=== PATIENT | male | born 1995 | race Hispanic/Latino ===

== ENCOUNTER → 2025-02-09 14:18 | Outpatient (REF) | payer OTHER, SELFPAY ==
[2025-02-09 15:04] LABS: Hematocrit 45.8 % (39.0-52.0); Hemoglobin 15.2 g/dL (13.0-18.0); Mean Corp Hgb Conc. 33.2 g/dL (33.0-37.0); Mean Corpuscular Volume 87.1 fL (80.0-94.0); Nucleated Red Blood Cells % 0 % (-); Platelet Count 180 10^3/uL (130-400); Red Cell Dist. Width 12.0 % (11.5-14.5); Reticulocyte Count 2.2 % (0.4-2.8)
[2025-02-10 09:49] LABS: Glycohemoglobin (HgbA1c) 5.5 % (4.0-5.6)
== END ==
LOC: CLINIC 14:18
PROVIDERS: ATTENDING PHYSICIAN Internal Medicine
DX: R73.03 Prediabetes (principal); R04.0 Epistaxis
CPT/HCPCS: 36415; 83036; 85025; 85045